=== PATIENT | female | born 1990 | race African-American/Black ===

== ENCOUNTER 2017-03-08 00:23 | Emergency (ER) | payer MEDICAID, OTHER ==
[~2017-03-08] VITALS: Ht 180.3 cm; Wt 154.2 kg
[~2017-03-08 00:23] MED LIST: KEFLEX500 MG ORAL; PRENATAL CAPSU1 EAC1 PO
[2017-03-08] MEDS ORDERED: NKM (00:33)
[2017-03-08] MEDS ORDERED: HYDROCORTISONE30 G2 TP (00:53)
[2017-03-08] MEDS ORDERED: PREDNISONE20 MG ORAL (00:53)
--- NOTE | 2017-03-08 00:53 | Emergency Room Report ---
History of Present Illness General Chief Complaint: Skin Rash/Abscess Source: Patient Present Illness HPI This is a 26-year-old female with a history of extensive eczema. She presents with exacerbation of eczema. She has diabetes plaques on her body is itching. About twice a year she comes in the hospital requiring prednisone. She does not see a private watchman or a charge nurse. She only uses hydrocortisone cream. Denies any other complaint. No nausea no vomiting. No fever or chills. No pain. Allergies: Uncoded Allergies: PEANUTS (Allergy, Intermediate, hives, 03/08/17) Patient History Past Medical History: see triage record, old chart reviewed Past Surgical History: other Pertinent Family History: none Social History: Denies: smoking Last Menstrual Period: 02/25/17 Now: No : 5 Para: 2 Immunizations: other Reviewed Nursing Documentation: PMH: Agreed, PSxH: Agreed Nursing Documentation-PMH Past Medical History: No Stated History Review of Systems Eye: Denies: blurred vision, eye pain ENT: Denies: ear pain, nose congestion, throat swelling Respiratory: Denies: cough, shortness of breath Cardiovascular: Denies: chest pain, palpitations Gastrointestinal: Denies: abdominal pain, diarrhea, nausea, vomiting Musculoskeletal: Denies: back pain, joint pain Skin: Denies: rash Neurological: Denies: headache, numbness Endocrine: Denies: increased thirst, increased urine Hematologic/Lymphatic: Denies: easy bruising All Other Systems: negative except mentioned in HPI Physical Exam Vital Signs Date Time Temp Pulse Resp B/P Pulse Ox O2 Delivery O2 Flow Rate FiO2 03/08/17 00:30 97.5 86 14 106/67 99 Room Air vitals normal Sp02 EP Interpretation: reviewed, normal General Appearance: well appearing, no apparent distress, alert Head: normocephalic, atraumatic Eyes: bilateral eye EOMI, bilateral eye PERRL ENT: hearing grossly normal, normal pharynx Neck: full range of motion, supple, no meningismus Respiratory: chest non-tender, lungs clear, normal breath sounds Cardiovascular #1: regular rate, rhythm, no murmur Gastrointestinal: normal bowel sounds, non tender, no mass, no organomegaly, no bruit, non-distended Musculoskeletal: back normal, gait/station normal, normal range of motion Neurologic: alert, oriented x3 Psychiatric: mood/affect normal Skin: warm/dry, rash - Diffuse eczema Medical Decision Making Diagnostic Impression: Primary Impression: Eczema Qualified Codes: L30.9 - Dermatitis, unspecified ER Course Patient with extensive eczema. No evidence of infection. We'll discharge home. Recommend followup with a private watchman or charge nurse. Last Vital Signs Date Time Temp Pulse Resp B/P Pulse Ox O2 Delivery O2 Flow Rate FiO2 03/08/17 00:30 97.5 86 14 106/67 99 Room Air Status: improved Disposition: HOME, SELF-CARE Condition: Stable Scripts Hydrocortisone (Hydrocortisone Cream 2.5%) Y Cream.appl 1 APPLIC TP BID, #30 GM Prov: THU BARCLAY M.D. 03/08/17 Prednisone* (PREDNISONE*) 20 Mg Tablet 40 MG ORAL DAILY, #10 TAB Prov: TUH BARCLAY M.D. 03/08/17 Additional Instructions: followup with your DrChepe in 7 days. You will benefit from a referral to see a charge nurse or a private watchman. Return if symptom worsen. THU BARCLAY M.D. Mar 08, 2017 00:53
[2017-03-08] MEDS ORDERED: PredniSONE 20mg tab ORAL ONE (01:00)
[2017-03-08] MEDS ORDERED: KENALOG 0.1% CR15 GM APPLIC (01:03)
[2017-03-08 01:11] VITALS: BP 122/74
[2017-03-08 01:12] VITALS: BP 106/67
== END 2017-03-08 01:13 | disposition home or self-care (01) ==
LOC: EMR 00:51
DX: L30.9 Dermatitis, unspecified (principal); E11.9 Type 2 diabetes mellitus without complications; Z91.018 Allergy to other foods
CPT/HCPCS: 99284